=== PATIENT | male | born 1975 | race Caucasian/White ===

== ENCOUNTER 2019-03-11 04:23 | Emergency (ER) | payer MEDICAID ==
[~2019-03-11] VITALS: Ht 172.7 cm; Wt 76.2 kg
[2019-03-11] MEDS ORDERED: KETOROLAC TROMETH 60MG/2ML VIAL IM ONE (07:00)
[2019-03-11 07:36] VITALS: BP 139/87
== END 2019-03-11 07:39 | disposition home or self-care (01) ==
LOC: ER 04:23
DX: S82.842A Displaced bimalleolar fracture of left lower leg, initial encounter for closed fracture (principal); S82.202A Unspecified fracture of shaft of left tibia, initial encounter for closed fracture; S16.1XXA Strain of muscle, fascia and tendon at neck level, initial encounter; S29.012A Strain of muscle and tendon of back wall of thorax, initial encounter; N20.0 Calculus of kidney; F17.210 Nicotine dependence, cigarettes, uncomplicated; V13.4XXA Pedal cycle driver injured in collision with car, pick-up truck or van in traffic accident, initial encounter; Y93.89 Activity, other specified; Y99.8 Other external cause status; Y92.89 Other specified places as the place of occurrence of the external cause
CPT/HCPCS: 29515; 71250; 72125; 73610; J1885

== ENCOUNTER 2024-02-10 06:54 | Emergency (ER) | payer MEDICAID ==
[~2024-02-10] VITALS: Ht 172.7 cm; Wt 77.2 kg
[2024-02-10 07:59] VITALS: TEMP 97.9
[2024-02-10 08:03] LABS: Urine Bacteria None Seen /hpf (None Seen)
[2024-02-10 08:08] LABS: Basophils # (auto) 0 10 ^3/uL (0-0.2); Basophils % (auto) 0.8 % (0.0-2.0); Eosinophils # (auto) 0.3 10 ^3/uL (0-0.8); Eosinophils % (auto) 4.2 % (0.0-7.0); Hematocrit 42.7 % (41.0-53.0); Hemoglobin 14.2 g/dL (13.5-17.5); Lymphocytes # (auto) 1.7 10 ^3/uL (0.4-5.4); Lymphocytes % (auto) 28.2 % (10.0-50.0); Mean Corpuscular Hemoglobin 30.7 pg (28.0-32.0); Mean Corpuscular Hgb Conc. 33.3 g/dL (32.0-36.0); Mean Corpuscular Volume 92.2 fL (80.0-100.0); Monocytes # (auto) 0.6 10 ^3/uL (0-1.3); Monocytes % (auto) 10.2 % (0.0-12.0); Neutrophils # (auto) 3.5 10 ^3/uL (1.6-8.6); Neutrophils % (auto) 56.6 % (37.0-80.0); Nucleated Red Blood Cells % 0.2 %; Red Blood Cells 4.64 10^6/uL (4.5-5.90); Red Cell Distribution Width 13.6 % (11.8-14.3); White Blood Cell 6.2 10^3/uL (4.4-10.8)
[2024-02-10 08:13] LABS: Urine Blood Negative /uL (Negative); Urine Clarity Clear (Clear); Urine Color Light-Yellow (Yellow); Urine Protein, UAD Negative (Negative); Urine Specific Gravity 1.023 (1.001-1.035); Urine Urobilinogen Normal (Negative); Urine WBC 1 /hpf (0 - 3); Urine pH 5.5 (5.0-9.0)
[2024-02-10 08:15] LABS: Chloride 109 mmol/L (98-107); Potassium 3.6 mmol/L (3.5-5.1); Sodium 143 mmol/L (136-145)
[2024-02-10 08:16] LABS: Anion Gap 4 (5-15); Calcium 9.5 mg/dL (8.5-10.1); Carbon Dioxide 30 mmol/L (20-30)
[2024-02-10 08:21] LABS: BUN/Creatinine Ratio 11.9 (10.0-20.0); Blood Urea Nitrogen 12 mg/dL (9-23); Glucose 112 mg/dL (74-106)
[2024-02-10 08:30] VITALS: PULSE 73; RESP 14; O2SAT 96
[2024-02-10] MEDS: IOHEXOL 300 MG/ML 100ML BOTTLE IJ ONE (08:31)
[2024-02-10 10:09] VITALS: BP 132/78; PULSE 73; RESP 14; O2SAT 96
[2024-02-10] MEDS ORDERED: TRAM50TA2 PO (10:16)
== END 2024-02-10 11:00 | disposition home or self-care (01) ==
LOC: ER 06:54
DX: K40.90 Unilateral inguinal hernia, without obstruction or gangrene, not specified as recurrent (principal)
CPT/HCPCS: 36415; 74177; 80048; 81001; 85025; 99285; Q9967